=== PATIENT | female | born 1990 | race Two or more races ===

== ENCOUNTER 2020-09-20 08:21 | Inpatient (IN) | payer BC, OTHER ==
[~2020-09-20] VITALS: Ht 160 cm; Wt 161.2 kg
--- NOTE | 2020-09-20 08:33 | NUR ---
regulatory internship: EKG done in triage
[2020-09-20] MEDS ORDERED: HYDROmorphone 1 MG/ML, 1ML INJ IV ONE (09:00)
[2020-09-20] MEDS ORDERED: ONDANSETRON 2MG/ML, 2ML IVPush ONE (09:00)
[2020-09-20] MEDS ORDERED: SODIUM CHLORIDE FLUSH 10ML SYR IVF ONE (09:00)
[2020-09-20] MEDS ORDERED: SODIUM CHLORIDE 0.9% 1,000ML IVBOLUS ONE (09:00)
[2020-09-20] MEDS ORDERED: ONDANSETRON 2MG/ML, 2ML ONE (09:04)
[2020-09-20] MEDS ORDERED: HYDROmorphone 1 MG/ML, 1ML INJ ONE (09:04)
--- NOTE | 2020-09-20 09:17 | NUR ---
pT STATES RT UPPER QUAD ABD PAIN STARTING THIS AM. PT STATES HX OF SAME AFTER EATING. PT PLACED ON MONITORS, VSS. PT MEDICATED FOR PAIN PER ORDERS, WILL REASSESS. PT AWAITING LAB RESULTS AND IMAGING. CONT TO MONITOR.
[2020-09-20 09:34] LABS: ALANINE AMINOTRANSFERASE 143 U/L (12-78); ALBUMIN 3.8 g/dL (3.4-5.0); ANION GAP 9 mmol/L (5-15); BASOPHILS % (AUTO) 1 % (0-1); CALCIUM 8.5 mg/dL (8.5-10.1); CHLORIDE 110 mmol/L (98-107); CREATININE 0.77 mg/dL (0.55-1.02); EOSINOPHILS % (AUTO) 2 % (1-7); LYMPHOCYTES % (AUTO) 31 % (22-44); MD NO; MEAN CORPUSCULAR HEMOGLOBIN 29.2 pg (27.0-34.8); MEAN CORPUSCULAR HGB CONC 33.9 g/dL (32.4-35.8); MEAN PLATELET VOLUME 9.5 fL (7.4-10.4); MONOCYTES % (AUTO) 7 % (2-9); NEUTROPHILS % (AUTO) 60 % (42-75); PLATELET COUNT 233 x10^3/uL (130-400); RED BLOOD COUNT 5.44 x10^6/uL (3.82-5.3); RED CELL DISTRIBUTION WIDTH 14.1 % (9.6-15.2)
--- NOTE | 2020-09-20 09:35 | NUR ---
U/S COMPLETED AWAITING RESULTS. PT STATES PAIN DECREASED, MEDICATIONS EFFECTIVE. PT AWARE NEEDS U/A, PT UNABLE TO VOID AT THIS TIME. PT REMAINS ON MONITORS. CONT TO MONITOR.
[2020-09-20 09:39] LABS: ALKALINE PHOSPHATASE 106 U/L (45-117); BILIRUBIN,TOTAL 0.7 mg/dL (0.2-1.0)
--- NOTE | 2020-09-20 10:28 | NUR ---
MEDICATION REQUESTED FROM PHARM.
[2020-09-20] MEDS ORDERED: CEFOTETAN PMX 1GM/50ML 50 ML IVPB ONE (10:30)
--- NOTE | 2020-09-20 10:49 | NUR ---
PT URINE COLLECTED, SENT TO LAB. PT RESTING IN BED, REFUSES NEED FOR MORE PAIN MEDICATIONS. PT REMAINS ON MONITORS, VSS. PT TO BE [facility] ADMIT.
--- NOTE | 2020-09-20 10:52 | NUR ---
REPORT TO SRIRAM PARKINSON.
--- NOTE | 2020-09-20 10:59 | NUR ---
PT'S IV ABX HUNG PER ORDERS. PER ERMD, NO BLOOD CULTURES NEEDED.
[2020-09-20] MEDS ORDERED: TRAZODONE 50MG TABLET PO PRN (11:00)
[2020-09-20] MEDS: INSULIN LISPRO 100 UNITS/ML, PEN SQ-INSULIN SCH ×3 (11:00→21:00)
[2020-09-20] MEDS ORDERED: MELATONIN 5 MG TABLET PO PRN (11:00)
[2020-09-20] MEDS ORDERED: POLYETHYLENE GLYCOL 17 GM PACKET PO PRN (11:00)
[2020-09-20] MEDS ORDERED: MORPHINE SULFATE 4 MG/ML, 1ML ONE (11:07)
[2020-09-20] MEDS: morphine SULFATE 10 MG/ML, 1ML IVPush PRN (11:09)
[2020-09-20 11:13] LABS: MICROSCOPIC INDICATED
--- NOTE | 2020-09-20 11:17 | NUR ---
PT MEDICATED FOR PAIN PER ORDERS. FLOOR RN CALLED, AWARE PT RECENTLY MEDICATED BEFORE TRANSPORT TO FLOOR WITH MORPHINE FOR PAIN PER ORDERS. PT HAS ALL OWN BELONGINGS UPON TRANSFER.
[2020-09-20 11:23] VITALS: BP 102/76
[2020-09-20] MEDS: POTASSIUM CHLORIDE 20 MEQ in LACTATED RINGERS 1,000 ML IV SCH (11:54)
[2020-09-20 13:36] VITALS: BP 107/73
[2020-09-20] MEDS: HEPARIN 5,000 UNITS/ML, 1ML SQ SCH (16:45)
[2020-09-20 19:00] VITALS: BP 129/88
[2020-09-21] MEDS: HEPARIN 5,000 UNITS/ML, 1ML SQ SCH ×3 (00:12→16:27)
[2020-09-21 01:00] VITALS: BP 114/70
[2020-09-21] MEDS: morphine SULFATE 10 MG/ML, 1ML IVPush PRN ×3 (01:02→20:47)
[2020-09-21 06:17] LABS: ALANINE AMINOTRANSFERASE 130 U/L (12-78); ALBUMIN 3.2 g/dL (3.4-5.0); ANION GAP 4 mmol/L (5-15); CALCIUM 8.2 mg/dL (8.5-10.1); CHLORIDE 111 mmol/L (98-107); CREATININE 0.64 mg/dL (0.55-1.02)
[2020-09-21 06:23] LABS: ALKALINE PHOSPHATASE 79 U/L (45-117); BILIRUBIN,TOTAL 0.6 mg/dL (0.2-1.0); TOTAL PROTEIN 6.8 g/dL (6.4-8.2)
[2020-09-21] MEDS: POTASSIUM CHLORIDE 20 MEQ in LACTATED RINGERS 1,000 ML IV SCH (06:44)
[2020-09-21] MEDS: INSULIN LISPRO 100 UNITS/ML, PEN SQ-INSULIN SCH ×2 (07:00→11:00)
[2020-09-21 07:49] VITALS: BP 126/90
[2020-09-21] MEDS: KETOROLAC 30 MG/1 ML IV PRN ×2 (08:14→16:27)
[2020-09-21] MEDS: SENNA/DOCUSATE TABLET PO SCH (08:18)
[2020-09-21] MEDS: ONDANSETRON ODT 4 MG PO PRN ×2 (10:47→20:46)
[2020-09-21] MEDS: METRONIDAZOLE PMX 500MG/100ML 100 ML IV SCH ×2 (11:39→20:22)
[2020-09-21] MEDS: CEFTRIAXONE PMX 2GM/50ML 50 ML IVPB SCH (12:43)
[2020-09-21 14:14] VITALS: BP 120/78
[2020-09-21 19:09] VITALS: BP 129/65
[2020-09-22] MEDS: HEPARIN 5,000 UNITS/ML, 1ML SQ SCH ×4 (00:16→23:49)
[2020-09-22] MEDS: KETOROLAC 30 MG/1 ML IV PRN ×2 (00:16→17:13)
[2020-09-22] MEDS: morphine SULFATE 10 MG/ML, 1ML IVPush PRN ×3 (01:17→23:51)
[2020-09-22 01:37] VITALS: BP 107/73
[2020-09-22] MEDS: POTASSIUM CHLORIDE 20 MEQ in LACTATED RINGERS 1,000 ML IV SCH (04:49)
[2020-09-22] MEDS: METRONIDAZOLE PMX 500MG/100ML 100 ML IV SCH ×3 (04:49→19:54)
[2020-09-22 07:19] VITALS: BP 102/67
[2020-09-22] MEDS: SENNA/DOCUSATE TABLET PO SCH (08:08)
[2020-09-22 08:38] LABS: BASOPHILS % (AUTO) 1 % (0-1); EOSINOPHILS % (AUTO) 3 % (1-7); LYMPHOCYTES % (AUTO) 42 % (22-44); MEAN CORPUSCULAR HEMOGLOBIN 28.9 pg (27.0-34.8); MEAN CORPUSCULAR HGB CONC 33.1 g/dL (32.4-35.8); MEAN PLATELET VOLUME 8.9 fL (7.4-10.4); MONOCYTES % (AUTO) 9 % (2-9); NEUTROPHILS % (AUTO) 46 % (42-75); PLATELET COUNT 187 x10^3/uL (130-400); RED BLOOD COUNT 4.72 x10^6/uL (3.82-5.3)
[2020-09-22 08:39] LABS: ANION GAP 4 mmol/L (5-15); CALCIUM 8.1 mg/dL (8.5-10.1); CHLORIDE 110 mmol/L (98-107); CREATININE 0.68 mg/dL (0.55-1.02)
[2020-09-22 08:46] LABS: MD NO
[2020-09-22] MEDS: CEFTRIAXONE PMX 2GM/50ML 50 ML IVPB SCH (13:19)
[2020-09-22 13:37] VITALS: BP 127/87
[2020-09-22] MEDS ORDERED: CHLORHEXIDINE 15 ML UDC ONE (13:49)
[2020-09-22] MEDS ORDERED: MIDAZOLAM 1 MG/ML, 2ML ONE (13:54)
[2020-09-22] MEDS ORDERED: FENTANYL PF 250 MCG/5ML ONE (13:59)
[2020-09-22] MEDS ORDERED: CHLORHEXIDINE 15 ML UDC PO ONE (14:00)
[2020-09-22] MEDS ORDERED: LABETALOL 5MG/ML, 20ML IV PRN (14:30)
[2020-09-22] MEDS ORDERED: OXYcodone 5 MG/5 ML ORAL.SOL UDC PO PRN (14:30)
[2020-09-22] MEDS ORDERED: MEPERIDINE/PF 25MG/0.5ML IVPush PRN (14:30)
[2020-09-22] MEDS ORDERED: ACETAMINOPHEN 325 MG TABLET PO PRN (14:30)
[2020-09-22] MEDS ORDERED: hydrALAzine 20 MG/ML, 1ML IV PRN (14:30)
[2020-09-22] MEDS ORDERED: ONDANSETRON 2MG/ML, 2ML IVPush PRN (14:30)
[2020-09-22] MEDS ORDERED: HYDROmorphone 1 MG/ML, 1ML INJ IVPush PRN (14:30)
[2020-09-22] MEDS ORDERED: PROMETHAZINE 25 MG/ML, 1ML IVPush PRN (14:30)
[2020-09-22] MEDS ORDERED: SUCCINYLCHOLINE 20 MG/ML, 10ML ONE (14:53)
[2020-09-22] MEDS ORDERED: PROPOFOL 10 MG/ML, 20ML ONE (14:53)
[2020-09-22] MEDS ORDERED: DEXAMETHASONE 4 MG/ML, 1ML ONE ×2 (14:53→14:54)
[2020-09-22] MEDS ORDERED: ONDANSETRON 2MG/ML, 2ML ONE ×2 (14:54→16:46)
[2020-09-22] MEDS ORDERED: BUPIVACAINE/PF-EPI 0.5% 1:200K INFIL ONE (15:07)
[2020-09-22] MEDS ORDERED: KETOROLAC 30 MG/1 ML ONE ×2 (16:13→17:09)
[2020-09-22] MEDS ORDERED: NEOSTIGMINE 1 MG/ML, 10ML ONE (16:20)
[2020-09-22] MEDS ORDERED: GLYCOPYRROLATE 0.2MG/1ML, 5ML ONE (16:20)
[2020-09-22] MEDS ORDERED: MORPHINE SULFATE 4 MG/ML, 1ML ONE (16:27)
[2020-09-22] MEDS ORDERED: OXYcodone 5 MG/5 ML ORAL.SOL UDC ONE (16:47)
[2020-09-22] MEDS ORDERED: FENTANYL PF 100 MCG/2ML ONE (16:47)
[2020-09-22] MEDS: FENTANYL PF 100 MCG/2ML IV PRN ×2 (16:50→17:04)
[2020-09-22] MEDS ORDERED: HYDROmorphone 1 MG/ML, 1ML INJ ONE (17:09)
[2020-09-22] MEDS ORDERED: hydrALAzine 20 MG/ML, 1ML ONE (17:15)
[2020-09-22 18:45] VITALS: BP 152/92
[2020-09-22 23:18] VITALS: BP 136/81
[2020-09-23 03:44] VITALS: BP 138/80
[2020-09-23] MEDS: METRONIDAZOLE PMX 500MG/100ML 100 ML IV SCH ×2 (04:25→12:20)
[2020-09-23] MEDS: KETOROLAC 30 MG/1 ML IV PRN ×2 (05:05→12:20)
[2020-09-23] MEDS: ACETAMINOPHEN 325 MG TABLET PO PRN ×2 (05:05→12:21)
[2020-09-23 07:50] VITALS: BP 116/79
[2020-09-23] MEDS: SENNA/DOCUSATE TABLET PO SCH (09:00)
[2020-09-23] MEDS: HEPARIN 5,000 UNITS/ML, 1ML SQ SCH (09:03)
[2020-09-23] MEDS: POTASSIUM CHLORIDE 20 MEQ in LACTATED RINGERS 1,000 ML IV SCH (10:18)
[2020-09-23] MEDS ORDERED: AMOX1TAB64 PO (11:43)
[2020-09-23] MEDS ORDERED: ACET325T26 PO (11:43)
[2020-09-23 13:45] VITALS: BP 121/77
[2020-09-23] MEDS: CEFTRIAXONE PMX 2GM/50ML 50 ML IVPB SCH (13:54)
[2020-09-23] MEDS: ONDANSETRON ODT 4 MG PO PRN (13:57)
== END 2020-09-23 15:58 | disposition home or self-care (01) | DRG 418 ==
LOC: ED 09:50 → SUATTDRO 10:34 → EDIP 10:35 → 4NE 11:00 → DCLOUNGE 09-23 15:25
PROVIDERS: ADMIT Internal Medicine; ATTEND Internal Medicine
PROC: 8E0W4CZ Robotic Assisted Procedure of Trunk Region, Percutaneous Endoscopic Approach (ICD-10-PCS; 2020-09-22)
PROC: 0FT44ZZ Resection of Gallbladder, Percutaneous Endoscopic Approach (ICD-10-PCS; principal; 2020-09-22 14:45)
DX: K80.12 Calculus of gallbladder with acute and chronic cholecystitis without obstruction (principal); Z68.44 Body mass index [BMI] 60.0-69.9, adult; Z20.822 Contact with and (suspected) exposure to COVID-19; E66.01 Morbid (severe) obesity due to excess calories; F41.9 Anxiety disorder, unspecified; K76.0 Fatty (change of) liver, not elsewhere classified; R73.03 Prediabetes; R73.9 Hyperglycemia, unspecified
CPT/HCPCS: 36415; 76700; 80048; 80053; 81001; 82962; 83036; 83690; 84703; 85025; 87086; 87147; 87635; 88304; 93005; 96374; G0378; J0696; J1100; J1170; J1644; J1885; J2250; J2405; J2704; J2710; J3010; J3480; Q0162; J0330; J0360; J2270; J7030; J7120